=== PATIENT | female | born 1965 | race Caucasian/White ===

== ENCOUNTER 2022-04-01 19:53 | Emergency (ER) | payer BC ==
[~2022-04-01] VITALS: Ht 170.2 cm; Wt 102.5 kg
[2022-04-01] MEDS ORDERED: ALBUTEROL INHALER 90MCG/INH IH ONE (22:00)
[2022-04-01] MEDS ORDERED: SOLU-MEDROL 125MG VIAL IM ONE (22:00)
[2022-04-01] MEDS ORDERED: AMOX/CLAV 875/125MG TAB PO ONE (22:00)
[2022-04-01] MEDS ORDERED: ACETAMINOPHEN 500 MG TABLET PO ONE (22:00)
[2022-04-01] MEDS ORDERED: IBUPROFEN 600 MG TABLET PO ONE (22:00)
[2022-04-01] MEDS ORDERED: GUAIFENESIN-CODEINE 5 ML SYRUP PO ONE (22:00)
[2022-04-01] MEDS ORDERED: AZITHROMYCIN 250 MG TABLET PO ONE (22:00)
[2022-04-01] MEDS ORDERED: IBUPROFEN 400 MG TABLET ONE (22:18)
[2022-04-01] MEDS ORDERED: D-ME1POW16 PO (22:54)
[2022-04-01] MEDS ORDERED: PRED20TA3 PO (22:54)
[2022-04-01] MEDS ORDERED: ALBU8.5H8 IH (22:54)
[2022-04-01 23:17] VITALS: BP 113/78
== END 2022-04-01 23:17 | disposition home or self-care (01) ==
LOC: EDH 19:53
DX: U07.1 COVID-19 (principal); J06.9 Acute upper respiratory infection, unspecified
CPT/HCPCS: 99284; 87635; 87804 ×2; 96372; C9803; J2930